=== PATIENT | female | born 1955 | race Caucasian/White ===

== ENCOUNTER 2016-09-10 18:30 | Emergency (ER) | payer OTHER ==
[~2016-09-10] VITALS: Ht 154.9 cm; Wt 88.0 kg
[~2016-09-10 18:30] MED LIST: LIPI40TA PO
[2016-09-10 18:44] VITALS: BP 171/81; PULSE 111; RESP 20; TEMP 98.3; O2SAT 98
[2016-09-10] MEDS ORDERED: [UNRECOGNIZED DRUG - CODE] (18:48)
[2016-09-10] MEDS ORDERED: LIPI80TA PO (18:48)
--- NOTE | 2016-09-10 19:05 | PD ---
HPI Chief Complaint: Foreign Body Time Seen by Provider: 18:56 Travel History International Travel<30 days: No Contact w/Intl Traveler<30days: No Traveled to known affect area: No History of Present Illness HPI This 60-year-old female says she was eating steak when she suddenly vomited water. Since then she's been unable to swallow she feels like something may be stuck behind her sternal area. She has been vomiting mucus sporadically since then. She has not been able to swallow anything. She had an episode like this 2 weeks ago which resolved on its own PFS Past Medical History High Cholesterol: Yes Diminished Hearing: No Hypertension: Yes Influenza Vaccination: Yes ?: Not Menopausal: Yes Past Surgical History Other Surgery: Yes (MELANOMA EXCISION LEFT ARM) Social History Alcohol Use: Yes (OCCASIONAL) Tobacco Use: No Substance Use: No Allergies-Medications (Allergen,Severity, Reaction): Coded Allergies: No Known Allergies (Unverified , 09/10/16) Reported Meds & Prescriptions Reported Meds & Active Scripts Active Reported Water Pills ([id number] Gluc-Cou) 1 Tab Lipitor (Atorvastatin Calcium) 80 Mg Tab 80 Mg PO EVERY OTHER DAY Review of Systems General / Constitutional: No: Fever, Chills Eyes: No: Diploplia, Blurred Vision HENT: No: Vertigo Cardiovascular: No: Palpitations Respiratory: No: Shortness of Breath Gastrointestinal: Positive: Vomiting, No: Nausea Genitourinary: No: Urgency, Frequency Physical Exam Narrative GENERAL: Patient is retching and coughing up saliva arrival. She is a well- developed female SKIN: Focused skin assessment warm/dry. HEAD: Atraumatic. Normocephalic. EYES: Pupils equal and round. No scleral icterus. No injection or drainage. ENT: No nasal bleeding or discharge. Mucous membranes pink and moist. NECK: Trachea midline. No JVD. CARDIOVASCULAR: Regular rate and rhythm. No murmur appreciated. RESPIRATORY: No accessory muscle use. Clear to auscultation. Breath sounds equal bilaterally. GASTROINTESTINAL: Abdomen soft, non-tender, nondistended. Hepatic and splenic margins not palpable. MUSCULOSKELETAL: No obvious deformities. No clubbing. No cyanosis. No edema. NEUROLOGICAL: Awake and alert. No obvious cranial nerve deficits. Motor grossly within normal limits. Normal speech. PSYCHIATRIC: Appropriate mood and affect; insight and judgment normal. Data Data Last Documented VS Vital Signs Date Time Temp Pulse Resp B/P Pulse Ox O2 Delivery O2 Flow Rate FiO2 09/10/16 18:44 98.3 111 20 171/81 98 Orders Complete Blood Count With Diff (09/10/16 19:04) Basic Metabolic Panel (Bmp) (09/10/16 19:04) Sodium Chlor 0.9% 1000 Ml Inj (Ns 1000 M (09/10/16 19:15) Glucagon Inj (Glucagon Inj) (09/10/16 19:15) Labs Laboratory Tests Test 09/10/16 19:00 White Blood Count 8.4 TH/MM3 Red Blood Count 4.77 MIL/MM3 Hemoglobin 14.4 GM/DL Hematocrit 42.3 % Mean Corpuscular Volume 88.7 FL Mean Corpuscular Hemoglobin 30.1 PG Mean Corpuscular Hemoglobin 34.0 % Concent Red Cell Distribution Width 12.3 % Platelet Count 304 TH/MM3 Mean Platelet Volume 8.0 FL Neutrophils (%) (Auto) 64.5 % Lymphocytes (%) (Auto) 25.5 % Monocytes (%) (Auto) 5.7 % Eosinophils (%) (Auto) 3.6 % Basophils (%) (Auto) 0.7 % Neutrophils # (Auto) 5.3 TH/MM3 Lymphocytes # (Auto) 2.2 TH/MM3 Monocytes # (Auto) 0.5 TH/MM3 Eosinophils # (Auto) 0.3 TH/MM3 Basophils # (Auto) 0.1 TH/MM3 CBC Comment DIFF FINAL Differential Comment Sodium Level 139 MEQ/L Potassium Level 3.1 MEQ/L Chloride Level 100 MEQ/L Carbon Dioxide Level 29.2 MEQ/L Anion Gap 10 MEQ/L Blood Urea Nitrogen 16 MG/DL Creatinine 0.71 MG/DL Estimat Glomerular Filtration 83 ML/MIN Rate Random Glucose 112 MG/DL Calcium Level 9.1 MG/DL MDM Medical Decision Making Medical Screen Exam Complete: Yes Emergency Medical Condition: Yes Medical Record Reviewed: Yes Differential Diagnosis Differential includes steak impaction, esophageal stricture Narrative Course Patient was given glucagon. He had several additional episodes of vomiting and then leaves she passed the area and I gave her water to drink and she drank it and did not come back. It appears that her esophageal obstruction has been resolved. I have told her that she needs to follow-up with her primary care physician as she probably needs to be scoped as this is the second episode in 2 weeks. Diagnosis Primary Impression: Impacted esophageal foreign body Qualified Code: T18.108A - Impacted esophageal foreign body, initial encounter Additional Instructions: Soft diet for 2 days Disposition: 01 DISCHARGE HOME Condition: Stable Tawanda Devine MD Sep 10, 2016 19:05
[2016-09-10] MEDS ORDERED: GLUCAGON 1 MG/ML VIAL IV PUSH ONE (19:15)
[2016-09-10] MEDS ORDERED: SODIUM CHLOR 0.9% 1000 ML INJ 1,000 ML IV SCH (19:15)
[2016-09-10 19:19] LABS: AUTOMATED NEUTROPHIL # 5.3 TH/MM3 (1.8-7.7); BASOPHIL # 0.1 TH/MM3 (0-0.2); BASOPHIL % 0.7 % (0.0-2.0); EOSINOPHIL # 0.3 TH/MM3 (0-0.4); EOSINOPHIL % 3.6 % (0.0-4.0); HEMATOCRIT 42.3 % (35.0-46.0); HEMO FLAGS DIFF FINAL; LYMPH % 25.5 % (9.0-44.0); LYMPHOCYTE # 2.2 TH/MM3 (1.0-4.8); MEAN CELL VOLUME 88.7 FL (80.0-100.0); MEAN CORPUSCULAR HEMOGLOBIN 30.1 PG (27.0-34.0); MONO % 5.7 % (0.0-8.0); NEUT % 64.5 % (16.0-70.0); PLATELET COUNT 304 TH/MM3 (150-450); RED BLOOD COUNT 4.77 MIL/MM3 (4.00-5.30); RED CELL DISTRIBUTION WIDTH 12.3 % (11.6-17.2); WHITE BLOOD COUNT 8.4 TH/MM3 (4.0-11.0)
[2016-09-10 19:36] LABS: POTASSIUM 3.1 MEQ/L (3.5-5.1)
[2016-09-10 19:39] LABS: BICARBONATE 29.2 MEQ/L (21.0-32.0)
[2016-09-10 20:26] VITALS: BP 167/68; PULSE 107; O2SAT 97
== END 2016-09-10 20:44 | disposition home or self-care (01) ==
LOC: PHED 18:30
DX: T18.108A Unspecified foreign body in esophagus causing other injury, initial encounter (principal)
CPT/HCPCS: 80048; 85025; 96361; 96374; 99283; J1610; J7030